=== PATIENT | male | born 2000 | race Two or more races ===

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

== ENCOUNTER 2019-10-05 16:04 | Outpatient (CLI) | payer OTHER | END 2019-10-05 17:00 | disposition home or self-care (01) | LOC: RAD 16:04 | DX: M54.5 Low back pain (principal) ==

== ENCOUNTER 2020-10-02 11:27 | Outpatient (CLI) | payer OTHER | END 2020-10-02 11:40 | disposition home or self-care (01) | LOC: RAD 11:27 | PROVIDERS: ATTEND Pediatrics | DX: M25.552 Pain in left hip (principal); M25.551 Pain in right hip ==